=== PATIENT | female | born 1995 | race Caucasian/White ===

== ENCOUNTER 2017-03-06 17:51 | Emergency (ER) | payer BC ==
[~2017-03-06 17:51] MED LIST: NO MEDICATIONS
[2017-03-06] MEDS ORDERED: HYDROCODONE-ACE10 ML PO (18:39)
[2017-03-06] MEDS ORDERED: MONONESSA 28 T1 EACH PO (18:40)
[2017-03-06] MEDS ORDERED: ZOFRAN4 M2 PO (18:40)
== END 2017-03-06 20:10 ==
LOC: EDMED 17:51
DX: K91.841 Postprocedural hemorrhage of a digestive system organ or structure following other procedure (principal); Y83.9 Surgical procedure, unspecified as the cause of abnormal reaction of the patient, or of later complication, without mention of misadventure at the time of the procedure